=== PATIENT | male | born 1950 | race African-American/Black ===

== ENCOUNTER → 2019-02-16 | Outpatient (CLI) | payer MEDICARE, MEDICAID ==
[~2019-02-16] MED LIST: DOBUTAMINE 250MG PREMIX 250 ML IV ONE
== END | disposition home or self-care (01) ==
LOC: CARD 07:10
PROVIDERS: ATTEND Specialist
DX: R07.9 Chest pain, unspecified (principal)
CPT/HCPCS: 78452; 93017; 93306; A9500; J1250